=== PATIENT | male | born 1965 | race Caucasian/White ===

== ENCOUNTER → 2019-01-28 | Outpatient (CLI) | payer OTHER ==
[~2019-01-28] MED LIST: LIDOCAINE/PRILOCAINE 2.5-2.5% KIT ONE
[2019-01-28 14:58] LABS: BASOPHILS # (AUTO) 0.1 (0.0-0.1); BASOPHILS % 1.1 % (0.0-1.0); EOSINOPHILS # (AUTO) 0.2 (0.0-0.4); EOSINOPHILS % 2.9 % (0.0-6.0); HEMATOCRIT 44.9 % (38.2-49.6); LYMPHOCYTES # (AUTO) 1.2 (1.0-3.2); LYMPHOCYTES % 18.1 % (18.0-39.1); MEAN CORPUSCULAR HEMOGLOBIN 27.4 pg (28-32); MEAN CORPUSCULAR HGB CONC 33.4 g/dL (31-35); MEAN CORPUSCULAR VOLUME 82.1 fL (81-99); MONOCYTES # (AUTO) 0.6 (0.2-0.8); MONOCYTES % 8.5 % (4.4-11.3); NEUTROPHILS # (AUTO) 4.5 (2.1-6.9); NEUTROPHILS % 68.8 % (38.7-80.0); PLATELET COUNT 229 x10e3/uL (140-360); RED BLOOD COUNT 5.47 x10e6/uL (4.3-5.7); RED CELL DISTRIBUTION WIDTH 13.2 % (11.7-14.4)
[2019-01-28 15:16] LABS: ALBUMIN 3.7 g/dL (3.5-5.0); ALBUMIN/GLOBULIN RATIO 0.9 (0.8-2.0); ANION GAP 17.1 mmol/L (8-16); CALCIUM 10.3 mg/dL (8.4-10.2); CREATININE, SERUM 1.77 mg/dL (0.72-1.25); POTASSIUM 4.1 mmol/L (3.5-5.1)
[2019-01-28 15:37] LABS: ERYTHROCYTE SEDIMENTATION RATE 21 mm/hr (0-13)
== END ==
LOC: WCC 01-19 14:36
PROVIDERS: ATTEND Family Medicine Adult Medicine
DX: E11.621 Type 2 diabetes mellitus with foot ulcer (principal); E11.29 Type 2 diabetes mellitus with other diabetic kidney complication; L97.429 Non-pressure chronic ulcer of left heel and midfoot with unspecified severity; M77.32 Calcaneal spur, left foot; N18.9 Chronic kidney disease, unspecified; I10 Essential (primary) hypertension; E29.1 Testicular hypofunction; E55.9 Vitamin D deficiency, unspecified
CPT/HCPCS: 36415; 80053; 82948; 83036; 84134; 85025; 85651; 86140

== ENCOUNTER → 2019-02-02 | Outpatient (CLI) | payer OTHER ==
--- NOTE | 2019-02-02 15:36 | Diagnostic Imaging Report ---
LEFT FOOT - 3 Images HISTORY: LEFT HEEL/MIDFOOT ULCER COMPARISON: None available. FINDINGS: Bones: No acute displaced fracture. No aggressive osseous lesion. No specific evidence of acute osseous erosion. Joints: Mild hallux valgus deformity. Multifocal degenerative changes, most only mild of the first metatarsophalangeal joint. Mild medial subluxation of the proximal fifth phalanx at the fifth metatarsophalangeal joint. Soft tissues: Small nonspecific soft tissue calcifications at the plantar soft tissues of the hindfoot. Nonspecific soft tissue swelling. IMPRESSION: No radiographic evidence of osteomyelitis. Signed by: Dr. Lai Monet D.O., M.M.M. on 02/02/2019 3:32 PM
== END ==
LOC: RAD 14:59
PROVIDERS: ATTEND Family Medicine Adult Medicine
DX: E11.621 Type 2 diabetes mellitus with foot ulcer (principal); L97.429 Non-pressure chronic ulcer of left heel and midfoot with unspecified severity

== ENCOUNTER → 2019-02-04 | Outpatient (CLI) | payer OTHER | LOC: WCC 11:56 | PROVIDERS: ATTEND Family Medicine Adult Medicine | DX: E11.621 Type 2 diabetes mellitus with foot ulcer (principal); E11.29 Type 2 diabetes mellitus with other diabetic kidney complication; L97.429 Non-pressure chronic ulcer of left heel and midfoot with unspecified severity; N18.9 Chronic kidney disease, unspecified; I10 Essential (primary) hypertension; E29.1 Testicular hypofunction; E55.9 Vitamin D deficiency, unspecified; M77.32 Calcaneal spur, left foot ==

== ENCOUNTER → 2019-02-09 | Outpatient (CLI) | payer OTHER ==
[~2019-02-09] MED LIST changes: +FLUOCINONIDE 0.05% 1 EA/15 GM TUBE ONE; +MINERAL OIL/PETROLAT/GLYCERI 2OZ CRM ONE; +MINERAL OIL/PETROLAT/GLYCERI 6OZ BTL ONE
== END ==
LOC: WCC 13:29
PROVIDERS: ATTEND Family Medicine Adult Medicine
DX: E11.621 Type 2 diabetes mellitus with foot ulcer (principal); E11.29 Type 2 diabetes mellitus with other diabetic kidney complication; L97.429 Non-pressure chronic ulcer of left heel and midfoot with unspecified severity; L24.4 Irritant contact dermatitis due to drugs in contact with skin; R21 Rash and other nonspecific skin eruption; M77.32 Calcaneal spur, left foot; N18.9 Chronic kidney disease, unspecified; I10 Essential (primary) hypertension; E29.1 Testicular hypofunction; E55.9 Vitamin D deficiency, unspecified
CPT/HCPCS: 88305; 88311

== ENCOUNTER → 2019-02-16 | Outpatient (CLI) | payer OTHER | LOC: WCC 15:29 | PROVIDERS: ATTEND Family Medicine Adult Medicine | DX: E11.621 Type 2 diabetes mellitus with foot ulcer (principal); E11.29 Type 2 diabetes mellitus with other diabetic kidney complication; L97.429 Non-pressure chronic ulcer of left heel and midfoot with unspecified severity; L24.4 Irritant contact dermatitis due to drugs in contact with skin; R21 Rash and other nonspecific skin eruption; N18.9 Chronic kidney disease, unspecified; I10 Essential (primary) hypertension; E29.1 Testicular hypofunction; E55.9 Vitamin D deficiency, unspecified; M77.32 Calcaneal spur, left foot ==

== ENCOUNTER → 2019-02-18 | Outpatient (CLI) | payer OTHER | LOC: WCC 15:10 | PROVIDERS: ATTEND Family Medicine Adult Medicine | DX: E11.621 Type 2 diabetes mellitus with foot ulcer (principal); E11.29 Type 2 diabetes mellitus with other diabetic kidney complication; L97.429 Non-pressure chronic ulcer of left heel and midfoot with unspecified severity; L24.4 Irritant contact dermatitis due to drugs in contact with skin; R21 Rash and other nonspecific skin eruption; M77.32 Calcaneal spur, left foot; N18.9 Chronic kidney disease, unspecified; I10 Essential (primary) hypertension; E29.1 Testicular hypofunction; E55.9 Vitamin D deficiency, unspecified ==

== ENCOUNTER → 2019-02-23 | Outpatient (CLI) | payer OTHER | LOC: WCC 10:28 | PROVIDERS: ATTEND Family Medicine Adult Medicine | DX: E11.621 Type 2 diabetes mellitus with foot ulcer (principal); E11.29 Type 2 diabetes mellitus with other diabetic kidney complication; M86.172 Other acute osteomyelitis, left ankle and foot; M86.672 Other chronic osteomyelitis, left ankle and foot; L97.429 Non-pressure chronic ulcer of left heel and midfoot with unspecified severity; L24.4 Irritant contact dermatitis due to drugs in contact with skin; R21 Rash and other nonspecific skin eruption; M77.32 Calcaneal spur, left foot; N18.9 Chronic kidney disease, unspecified; I10 Essential (primary) hypertension; E55.9 Vitamin D deficiency, unspecified; E29.1 Testicular hypofunction ==

== ENCOUNTER → 2019-02-25 | Outpatient (CLI) | payer OTHER | LOC: WCC 10:24 | PROVIDERS: ATTEND Family Medicine Adult Medicine | DX: E11.621 Type 2 diabetes mellitus with foot ulcer (principal); E11.29 Type 2 diabetes mellitus with other diabetic kidney complication; M86.172 Other acute osteomyelitis, left ankle and foot; M86.672 Other chronic osteomyelitis, left ankle and foot; L97.429 Non-pressure chronic ulcer of left heel and midfoot with unspecified severity; N18.9 Chronic kidney disease, unspecified; I10 Essential (primary) hypertension; L24.4 Irritant contact dermatitis due to drugs in contact with skin; R21 Rash and other nonspecific skin eruption; M77.32 Calcaneal spur, left foot; E55.9 Vitamin D deficiency, unspecified; E29.1 Testicular hypofunction ==

== ENCOUNTER → 2019-03-02 | Outpatient (CLI) | payer OTHER | LOC: WCC 10:47 | PROVIDERS: ATTEND Family Medicine Adult Medicine | DX: E11.621 Type 2 diabetes mellitus with foot ulcer (principal); E11.29 Type 2 diabetes mellitus with other diabetic kidney complication; M86.172 Other acute osteomyelitis, left ankle and foot; M86.672 Other chronic osteomyelitis, left ankle and foot; L97.429 Non-pressure chronic ulcer of left heel and midfoot with unspecified severity; L24.4 Irritant contact dermatitis due to drugs in contact with skin; R21 Rash and other nonspecific skin eruption; N18.9 Chronic kidney disease, unspecified; I10 Essential (primary) hypertension; E29.1 Testicular hypofunction; E55.9 Vitamin D deficiency, unspecified; M77.32 Calcaneal spur, left foot | CPT/HCPCS: 87071; 87075; 87205 ==

== ENCOUNTER → 2019-03-04 | Outpatient (CLI) | payer OTHER | LOC: WCC 08:52 | PROVIDERS: ATTEND Family Medicine Adult Medicine | DX: E11.621 Type 2 diabetes mellitus with foot ulcer (principal); E11.29 Type 2 diabetes mellitus with other diabetic kidney complication; M86.172 Other acute osteomyelitis, left ankle and foot; M86.672 Other chronic osteomyelitis, left ankle and foot; L97.429 Non-pressure chronic ulcer of left heel and midfoot with unspecified severity; L24.4 Irritant contact dermatitis due to drugs in contact with skin; R21 Rash and other nonspecific skin eruption; M77.32 Calcaneal spur, left foot; N18.9 Chronic kidney disease, unspecified; I10 Essential (primary) hypertension; E55.9 Vitamin D deficiency, unspecified; E29.1 Testicular hypofunction ==

== ENCOUNTER → 2019-03-09 | Outpatient (CLI) | payer OTHER | LOC: WCC 11:28 | PROVIDERS: ATTEND Family Medicine Adult Medicine | DX: E11.621 Type 2 diabetes mellitus with foot ulcer (principal); E11.29 Type 2 diabetes mellitus with other diabetic kidney complication; L97.429 Non-pressure chronic ulcer of left heel and midfoot with unspecified severity; L24.4 Irritant contact dermatitis due to drugs in contact with skin; R21 Rash and other nonspecific skin eruption; M77.32 Calcaneal spur, left foot; N18.9 Chronic kidney disease, unspecified; I10 Essential (primary) hypertension; E29.1 Testicular hypofunction; E55.9 Vitamin D deficiency, unspecified ==

== ENCOUNTER → 2019-03-11 | Outpatient (CLI) | payer OTHER ==
[~2019-03-11] MED LIST changes: +COLLAGENASE OINTMENT 30 GM TUBE ONE; -FLUOCINONIDE 0.05% 1 EA/15 GM TUBE ONE
== END ==
LOC: WCC 10:41
PROVIDERS: ATTEND Family Medicine
DX: E11.621 Type 2 diabetes mellitus with foot ulcer (principal); E11.29 Type 2 diabetes mellitus with other diabetic kidney complication; M86.172 Other acute osteomyelitis, left ankle and foot; M86.672 Other chronic osteomyelitis, left ankle and foot; L97.429 Non-pressure chronic ulcer of left heel and midfoot with unspecified severity; L24.4 Irritant contact dermatitis due to drugs in contact with skin; R21 Rash and other nonspecific skin eruption; M77.32 Calcaneal spur, left foot; N18.9 Chronic kidney disease, unspecified; I10 Essential (primary) hypertension; E55.9 Vitamin D deficiency, unspecified; E29.1 Testicular hypofunction

== ENCOUNTER → 2019-03-16 | Outpatient (CLI) | payer OTHER | LOC: WCC 08:49 | PROVIDERS: ATTEND Family Medicine | DX: E11.621 Type 2 diabetes mellitus with foot ulcer (principal); E11.29 Type 2 diabetes mellitus with other diabetic kidney complication; M86.172 Other acute osteomyelitis, left ankle and foot; M86.672 Other chronic osteomyelitis, left ankle and foot; L97.429 Non-pressure chronic ulcer of left heel and midfoot with unspecified severity; L24.4 Irritant contact dermatitis due to drugs in contact with skin; R21 Rash and other nonspecific skin eruption; M77.32 Calcaneal spur, left foot; N18.9 Chronic kidney disease, unspecified; I10 Essential (primary) hypertension; E29.1 Testicular hypofunction; E55.9 Vitamin D deficiency, unspecified ==

== ENCOUNTER → 2019-03-18 | Outpatient (CLI) | payer OTHER | LOC: WCC 02:00 | PROVIDERS: ATTEND Family Medicine | DX: E11.621 Type 2 diabetes mellitus with foot ulcer (principal); E11.29 Type 2 diabetes mellitus with other diabetic kidney complication; M86.172 Other acute osteomyelitis, left ankle and foot; M86.672 Other chronic osteomyelitis, left ankle and foot; L97.429 Non-pressure chronic ulcer of left heel and midfoot with unspecified severity; L24.4 Irritant contact dermatitis due to drugs in contact with skin; R21 Rash and other nonspecific skin eruption; M77.32 Calcaneal spur, left foot; N18.9 Chronic kidney disease, unspecified; I10 Essential (primary) hypertension; E55.9 Vitamin D deficiency, unspecified; E29.1 Testicular hypofunction ==

== ENCOUNTER → 2019-03-23 | Outpatient (CLI) | payer OTHER | LOC: WCC 09:20 | PROVIDERS: ATTEND Family Medicine | DX: E11.621 Type 2 diabetes mellitus with foot ulcer (principal); E11.29 Type 2 diabetes mellitus with other diabetic kidney complication; M86.172 Other acute osteomyelitis, left ankle and foot; M86.672 Other chronic osteomyelitis, left ankle and foot; L97.429 Non-pressure chronic ulcer of left heel and midfoot with unspecified severity; L24.4 Irritant contact dermatitis due to drugs in contact with skin; R21 Rash and other nonspecific skin eruption; N18.9 Chronic kidney disease, unspecified; I10 Essential (primary) hypertension; M77.32 Calcaneal spur, left foot; E29.1 Testicular hypofunction; E55.9 Vitamin D deficiency, unspecified ==

== ENCOUNTER → 2019-03-25 | Outpatient (CLI) | payer OTHER | LOC: WCC 10:54 | PROVIDERS: ATTEND Family Medicine | DX: E11.621 Type 2 diabetes mellitus with foot ulcer (principal); E11.29 Type 2 diabetes mellitus with other diabetic kidney complication; L97.429 Non-pressure chronic ulcer of left heel and midfoot with unspecified severity; M86.172 Other acute osteomyelitis, left ankle and foot; M86.672 Other chronic osteomyelitis, left ankle and foot; R21 Rash and other nonspecific skin eruption; M77.32 Calcaneal spur, left foot; N18.9 Chronic kidney disease, unspecified; I10 Essential (primary) hypertension; E55.9 Vitamin D deficiency, unspecified; E29.1 Testicular hypofunction ==

== ENCOUNTER → 2019-03-30 | Outpatient (CLI) | payer OTHER ==
[2019-03-30 11:53] LABS: ALBUMIN 3.7 g/dL (3.5-5.0); ANION GAP 12.2 mmol/L (8-16); CREATININE, SERUM 1.66 mg/dL (0.72-1.25); POTASSIUM 4.2 mmol/L (3.5-5.1)
== END ==
LOC: WCC 14:03
PROVIDERS: ATTEND Family Medicine
DX: E11.621 Type 2 diabetes mellitus with foot ulcer (principal); E11.29 Type 2 diabetes mellitus with other diabetic kidney complication; M86.172 Other acute osteomyelitis, left ankle and foot; M86.672 Other chronic osteomyelitis, left ankle and foot; L97.429 Non-pressure chronic ulcer of left heel and midfoot with unspecified severity; M77.32 Calcaneal spur, left foot; R21 Rash and other nonspecific skin eruption; N18.9 Chronic kidney disease, unspecified; I10 Essential (primary) hypertension; E29.1 Testicular hypofunction; E55.9 Vitamin D deficiency, unspecified
CPT/HCPCS: 36415; 80053; 83036

== ENCOUNTER → 2019-04-01 | Outpatient (CLI) | payer OTHER | LOC: WCC 10:39 | PROVIDERS: ATTEND Family Medicine | DX: E11.621 Type 2 diabetes mellitus with foot ulcer (principal); E11.29 Type 2 diabetes mellitus with other diabetic kidney complication; M86.172 Other acute osteomyelitis, left ankle and foot; M86.672 Other chronic osteomyelitis, left ankle and foot; L97.429 Non-pressure chronic ulcer of left heel and midfoot with unspecified severity; R21 Rash and other nonspecific skin eruption; M77.32 Calcaneal spur, left foot; N18.9 Chronic kidney disease, unspecified; I10 Essential (primary) hypertension; E55.9 Vitamin D deficiency, unspecified; E29.1 Testicular hypofunction ==

== ENCOUNTER → 2019-04-06 | Outpatient (CLI) | payer OTHER | LOC: WCC 12:34 | PROVIDERS: ATTEND Family Medicine | DX: E11.621 Type 2 diabetes mellitus with foot ulcer (principal); E11.29 Type 2 diabetes mellitus with other diabetic kidney complication; M86.172 Other acute osteomyelitis, left ankle and foot; M86.672 Other chronic osteomyelitis, left ankle and foot; L97.429 Non-pressure chronic ulcer of left heel and midfoot with unspecified severity; N18.9 Chronic kidney disease, unspecified; I10 Essential (primary) hypertension; R21 Rash and other nonspecific skin eruption; M77.32 Calcaneal spur, left foot; E55.9 Vitamin D deficiency, unspecified; E29.1 Testicular hypofunction ==

== ENCOUNTER → 2019-04-08 | Outpatient (CLI) | payer OTHER | LOC: WCC 08:51 | PROVIDERS: ATTEND Family Medicine | DX: E11.621 Type 2 diabetes mellitus with foot ulcer (principal); E11.29 Type 2 diabetes mellitus with other diabetic kidney complication; M86.172 Other acute osteomyelitis, left ankle and foot; M86.672 Other chronic osteomyelitis, left ankle and foot; L97.429 Non-pressure chronic ulcer of left heel and midfoot with unspecified severity; R21 Rash and other nonspecific skin eruption; M77.32 Calcaneal spur, left foot; N18.9 Chronic kidney disease, unspecified; I10 Essential (primary) hypertension; E55.9 Vitamin D deficiency, unspecified; E29.1 Testicular hypofunction ==

== ENCOUNTER → 2019-04-13 | Outpatient (CLI) | payer OTHER ==
[~2019-04-13] MED LIST changes: +AMMONIUM LACTATE 12% LOTION 225GM BTL ONE; -COLLAGENASE OINTMENT 30 GM TUBE ONE; +LIDOCAINE VISC 2% SOLN 15 ML UDC ONE; -LIDOCAINE/PRILOCAINE 2.5-2.5% KIT ONE; -MINERAL OIL/PETROLAT/GLYCERI 2OZ CRM ONE; -MINERAL OIL/PETROLAT/GLYCERI 6OZ BTL ONE
== END ==
LOC: WCC 12:28
PROVIDERS: ATTEND Family Medicine Adult Medicine
DX: E11.621 Type 2 diabetes mellitus with foot ulcer (principal); E11.29 Type 2 diabetes mellitus with other diabetic kidney complication; M86.172 Other acute osteomyelitis, left ankle and foot; M86.672 Other chronic osteomyelitis, left ankle and foot; L97.429 Non-pressure chronic ulcer of left heel and midfoot with unspecified severity; R21 Rash and other nonspecific skin eruption; M77.32 Calcaneal spur, left foot; E29.1 Testicular hypofunction; E55.9 Vitamin D deficiency, unspecified

== ENCOUNTER → 2019-04-15 | Outpatient (CLI) | payer OTHER | LOC: WCC 04-14 16:21 | PROVIDERS: ATTEND Family Medicine Adult Medicine | DX: E11.621 Type 2 diabetes mellitus with foot ulcer (principal); E11.29 Type 2 diabetes mellitus with other diabetic kidney complication; M86.672 Other chronic osteomyelitis, left ankle and foot; L97.429 Non-pressure chronic ulcer of left heel and midfoot with unspecified severity; R21 Rash and other nonspecific skin eruption; N18.9 Chronic kidney disease, unspecified; I10 Essential (primary) hypertension; E29.1 Testicular hypofunction; E55.9 Vitamin D deficiency, unspecified; M77.32 Calcaneal spur, left foot | CPT/HCPCS: 15275; Q4186 ==

== ENCOUNTER → 2019-04-22 | Outpatient (CLI) | payer OTHER | LOC: WCC 15:23 | PROVIDERS: ATTEND Family Medicine Adult Medicine | DX: E11.621 Type 2 diabetes mellitus with foot ulcer (principal); E11.29 Type 2 diabetes mellitus with other diabetic kidney complication; M86.672 Other chronic osteomyelitis, left ankle and foot; L97.429 Non-pressure chronic ulcer of left heel and midfoot with unspecified severity; N18.9 Chronic kidney disease, unspecified; I10 Essential (primary) hypertension; M77.32 Calcaneal spur, left foot; R21 Rash and other nonspecific skin eruption; E29.1 Testicular hypofunction; E55.9 Vitamin D deficiency, unspecified | CPT/HCPCS: 15275; Q4186 ==

== ENCOUNTER → 2019-04-29 | Outpatient (CLI) | payer OTHER | LOC: WCC 10:42 | PROVIDERS: ATTEND Family Medicine Adult Medicine | DX: E11.621 Type 2 diabetes mellitus with foot ulcer (principal); E11.29 Type 2 diabetes mellitus with other diabetic kidney complication; M86.672 Other chronic osteomyelitis, left ankle and foot; L97.429 Non-pressure chronic ulcer of left heel and midfoot with unspecified severity; R21 Rash and other nonspecific skin eruption; M77.32 Calcaneal spur, left foot; N18.9 Chronic kidney disease, unspecified; I10 Essential (primary) hypertension; E29.1 Testicular hypofunction; E55.9 Vitamin D deficiency, unspecified ==

== ENCOUNTER → 2019-05-07 | Outpatient (CLI) | payer OTHER | LOC: WCC 11:22 | PROVIDERS: ATTEND Family Medicine Adult Medicine | DX: E11.621 Type 2 diabetes mellitus with foot ulcer (principal); E11.29 Type 2 diabetes mellitus with other diabetic kidney complication; M86.672 Other chronic osteomyelitis, left ankle and foot; L97.429 Non-pressure chronic ulcer of left heel and midfoot with unspecified severity; R21 Rash and other nonspecific skin eruption; M77.32 Calcaneal spur, left foot; N18.9 Chronic kidney disease, unspecified; I10 Essential (primary) hypertension; E55.9 Vitamin D deficiency, unspecified; E29.1 Testicular hypofunction ==

== ENCOUNTER → 2019-05-14 | Outpatient (CLI) | payer OTHER | LOC: WCC 15:46 | PROVIDERS: ATTEND Family Medicine Adult Medicine | DX: E11.621 Type 2 diabetes mellitus with foot ulcer (principal); E11.29 Type 2 diabetes mellitus with other diabetic kidney complication; M86.672 Other chronic osteomyelitis, left ankle and foot; L97.429 Non-pressure chronic ulcer of left heel and midfoot with unspecified severity; R21 Rash and other nonspecific skin eruption; M77.32 Calcaneal spur, left foot; N18.9 Chronic kidney disease, unspecified; I10 Essential (primary) hypertension; E55.9 Vitamin D deficiency, unspecified; E29.1 Testicular hypofunction ==

== ENCOUNTER → 2019-05-18 | Outpatient (CLI) | payer OTHER | LOC: WCC 11:48 | PROVIDERS: ATTEND Family Medicine Adult Medicine | DX: E11.621 Type 2 diabetes mellitus with foot ulcer (principal); E11.29 Type 2 diabetes mellitus with other diabetic kidney complication; M86.672 Other chronic osteomyelitis, left ankle and foot; L97.429 Non-pressure chronic ulcer of left heel and midfoot with unspecified severity; R21 Rash and other nonspecific skin eruption; M77.32 Calcaneal spur, left foot; N18.9 Chronic kidney disease, unspecified; I10 Essential (primary) hypertension; E29.1 Testicular hypofunction; E55.9 Vitamin D deficiency, unspecified | CPT/HCPCS: 15275; Q4186 ==

== ENCOUNTER → 2019-05-21 | Outpatient (CLI) | payer OTHER | LOC: WCC 11:48 | PROVIDERS: ATTEND Family Medicine Adult Medicine | DX: E11.621 Type 2 diabetes mellitus with foot ulcer (principal); E11.29 Type 2 diabetes mellitus with other diabetic kidney complication; L97.429 Non-pressure chronic ulcer of left heel and midfoot with unspecified severity; R21 Rash and other nonspecific skin eruption; N18.9 Chronic kidney disease, unspecified; I10 Essential (primary) hypertension; E29.1 Testicular hypofunction; M77.32 Calcaneal spur, left foot; E55.9 Vitamin D deficiency, unspecified ==

== ENCOUNTER → 2019-05-25 | Outpatient (CLI) | payer OTHER | LOC: WCC 10:45 | PROVIDERS: ATTEND Podiatrist Foot & Ankle Surgery | DX: E11.621 Type 2 diabetes mellitus with foot ulcer (principal); E11.29 Type 2 diabetes mellitus with other diabetic kidney complication; L97.429 Non-pressure chronic ulcer of left heel and midfoot with unspecified severity; N18.9 Chronic kidney disease, unspecified; I10 Essential (primary) hypertension; R21 Rash and other nonspecific skin eruption; M77.32 Calcaneal spur, left foot; E29.1 Testicular hypofunction; E55.9 Vitamin D deficiency, unspecified | CPT/HCPCS: 15275; Q4186 ==

== ENCOUNTER → 2019-06-04 | Outpatient (CLI) | payer OTHER | LOC: WCC 12:56 | PROVIDERS: ATTEND Family Medicine Adult Medicine | DX: E11.621 Type 2 diabetes mellitus with foot ulcer (principal); E11.29 Type 2 diabetes mellitus with other diabetic kidney complication; L97.429 Non-pressure chronic ulcer of left heel and midfoot with unspecified severity; R21 Rash and other nonspecific skin eruption; M77.32 Calcaneal spur, left foot; N18.9 Chronic kidney disease, unspecified; I10 Essential (primary) hypertension; E29.1 Testicular hypofunction; E55.9 Vitamin D deficiency, unspecified ==

== ENCOUNTER → 2019-06-11 | Outpatient (CLI) | payer OTHER | LOC: WCC 14:38 | PROVIDERS: ATTEND Family Medicine Adult Medicine | DX: E11.621 Type 2 diabetes mellitus with foot ulcer (principal); E11.29 Type 2 diabetes mellitus with other diabetic kidney complication; L97.429 Non-pressure chronic ulcer of left heel and midfoot with unspecified severity; R21 Rash and other nonspecific skin eruption; M77.32 Calcaneal spur, left foot; N18.9 Chronic kidney disease, unspecified; I10 Essential (primary) hypertension; E55.9 Vitamin D deficiency, unspecified; E29.1 Testicular hypofunction ==

== ENCOUNTER → 2019-06-15 | Outpatient (CLI) | payer OTHER | LOC: EDBD → WCC 15:17 | PROVIDERS: ATTEND Family Medicine Adult Medicine | DX: E11.621 Type 2 diabetes mellitus with foot ulcer (principal); E11.29 Type 2 diabetes mellitus with other diabetic kidney complication; L97.429 Non-pressure chronic ulcer of left heel and midfoot with unspecified severity; R21 Rash and other nonspecific skin eruption; M77.32 Calcaneal spur, left foot; N18.9 Chronic kidney disease, unspecified; I10 Essential (primary) hypertension; E29.1 Testicular hypofunction; E55.9 Vitamin D deficiency, unspecified ==

== ENCOUNTER → 2019-06-17 | Outpatient (CLI) | payer OTHER | LOC: WCC 09:39 | PROVIDERS: ATTEND Family Medicine Adult Medicine | DX: E11.621 Type 2 diabetes mellitus with foot ulcer (principal); E11.29 Type 2 diabetes mellitus with other diabetic kidney complication; L97.429 Non-pressure chronic ulcer of left heel and midfoot with unspecified severity; R21 Rash and other nonspecific skin eruption; M77.32 Calcaneal spur, left foot; N18.9 Chronic kidney disease, unspecified; I10 Essential (primary) hypertension; E55.9 Vitamin D deficiency, unspecified; E29.1 Testicular hypofunction ==

== ENCOUNTER → 2019-06-22 | Outpatient (CLI) | payer OTHER | LOC: WCC 16:17 | PROVIDERS: ATTEND Family Medicine Adult Medicine | DX: E11.621 Type 2 diabetes mellitus with foot ulcer (principal); E11.29 Type 2 diabetes mellitus with other diabetic kidney complication; L97.429 Non-pressure chronic ulcer of left heel and midfoot with unspecified severity; R21 Rash and other nonspecific skin eruption; M77.32 Calcaneal spur, left foot; N18.9 Chronic kidney disease, unspecified; I10 Essential (primary) hypertension; E29.1 Testicular hypofunction; E55.9 Vitamin D deficiency, unspecified ==

== ENCOUNTER → 2019-06-24 | Outpatient (CLI) | payer OTHER | LOC: EDBD → WCC 12:49 | PROVIDERS: ATTEND Family Medicine Adult Medicine | DX: E11.621 Type 2 diabetes mellitus with foot ulcer (principal); E11.29 Type 2 diabetes mellitus with other diabetic kidney complication; L97.429 Non-pressure chronic ulcer of left heel and midfoot with unspecified severity; R21 Rash and other nonspecific skin eruption; M77.32 Calcaneal spur, left foot; N18.9 Chronic kidney disease, unspecified; I10 Essential (primary) hypertension; E55.9 Vitamin D deficiency, unspecified; E29.1 Testicular hypofunction | CPT/HCPCS: 87071; 87075; 87205 ==

== ENCOUNTER → 2019-06-28 | Outpatient (CLI) | payer OTHER | LOC: EDBD → WCC 15:31 | PROVIDERS: ATTEND Family Medicine Adult Medicine | DX: E11.621 Type 2 diabetes mellitus with foot ulcer (principal); E11.29 Type 2 diabetes mellitus with other diabetic kidney complication; L97.429 Non-pressure chronic ulcer of left heel and midfoot with unspecified severity; M77.32 Calcaneal spur, left foot; R21 Rash and other nonspecific skin eruption; N18.9 Chronic kidney disease, unspecified; I10 Essential (primary) hypertension; E29.1 Testicular hypofunction; E55.9 Vitamin D deficiency, unspecified ==

== ENCOUNTER → 2019-06-29 | Outpatient (CLI) | payer OTHER ==
--- NOTE | 2019-06-29 14:13 | Diagnostic Imaging Report ---
Chest, PA and lateral. History: Preprocedural exam. Comparison: None available. Discussion: The cardiomediastinal silhouette and pulmonary vasculature are within normal limits. The lungs are clear without evidence of consolidation or effusion. There are no acute osseous abnormalities. IMPRESSION: No radiographic evidence of acute cardiopulmonary abnormality. Signed by: Luis Wagner MD on 06/29/2019 2:10 PM
--- NOTE | 2019-06-29 14:19 | Diagnostic Imaging Report ---
Left foot, 3 views Clinical indications: Diabetes, left foot ulcer Comparison: 02/02/2019 Findings: 3 views of the left foot were obtained. Since prior examination there is been development of soft tissue ulcer at the lateral aspect of the fifth metatarsal head. There has been osseous resorption of the distal fifth metatarsal head and at osseous erosion is noted at the base of the fifth proximal phalanx. Multifocal degenerative changes are identified which are most pronounced at the first metatarsophalangeal joint. Mild hallux valgus deformity is present. Impression: Resorption of the fifth metatarsal head and osseous erosion of the base of the fifth proximal phalanx concerning for chronic osteomyelitis. An overlying soft tissue ulceration is present at the lateral aspect of the fifth metatarsal head. Signed by: Luis Wagner MD on 06/29/2019 2:16 PM
== END ==
LOC: WCC 13:23
PROVIDERS: ATTEND Family Medicine Adult Medicine
DX: E11.29 Type 2 diabetes mellitus with other diabetic kidney complication (principal); E11.621 Type 2 diabetes mellitus with foot ulcer; L97.429 Non-pressure chronic ulcer of left heel and midfoot with unspecified severity; R21 Rash and other nonspecific skin eruption; M77.32 Calcaneal spur, left foot; N18.9 Chronic kidney disease, unspecified; I10 Essential (primary) hypertension; E29.1 Testicular hypofunction; E55.9 Vitamin D deficiency, unspecified; Z01.810 Encounter for preprocedural cardiovascular examination; Z01.811 Encounter for preprocedural respiratory examination
CPT/HCPCS: 71046; 93005

== ENCOUNTER → 2019-06-30 | Outpatient (CLI) | payer OTHER | LOC: RAD 13:37 | PROVIDERS: ATTEND Family Medicine Adult Medicine | DX: Z01.810 Encounter for preprocedural cardiovascular examination (principal); Z01.811 Encounter for preprocedural respiratory examination; E11.621 Type 2 diabetes mellitus with foot ulcer | CPT/HCPCS: 93306 ==

== ENCOUNTER → 2019-07-01 | Outpatient (CLI) | payer OTHER | LOC: WCC 13:53 | PROVIDERS: ATTEND Family Medicine Adult Medicine | DX: E11.621 Type 2 diabetes mellitus with foot ulcer (principal); E11.29 Type 2 diabetes mellitus with other diabetic kidney complication; L97.429 Non-pressure chronic ulcer of left heel and midfoot with unspecified severity; R21 Rash and other nonspecific skin eruption; M77.32 Calcaneal spur, left foot; N18.9 Chronic kidney disease, unspecified; I10 Essential (primary) hypertension; E55.9 Vitamin D deficiency, unspecified; E29.1 Testicular hypofunction; Z01.810 Encounter for preprocedural cardiovascular examination; Z01.811 Encounter for preprocedural respiratory examination ==

== ENCOUNTER → 2019-07-06 | Outpatient (CLI) | payer OTHER | LOC: WCC 09:54 | PROVIDERS: ATTEND Family Medicine Adult Medicine | DX: E11.621 Type 2 diabetes mellitus with foot ulcer (principal); E11.29 Type 2 diabetes mellitus with other diabetic kidney complication; L97.429 Non-pressure chronic ulcer of left heel and midfoot with unspecified severity; M77.32 Calcaneal spur, left foot; R21 Rash and other nonspecific skin eruption; N18.9 Chronic kidney disease, unspecified; I10 Essential (primary) hypertension; E29.1 Testicular hypofunction; E55.9 Vitamin D deficiency, unspecified; Z01.810 Encounter for preprocedural cardiovascular examination; Z01.811 Encounter for preprocedural respiratory examination ==

== ENCOUNTER → 2019-07-13 | Outpatient (CLI) | payer OTHER ==
[~2019-07-13] MED LIST changes: -LIDOCAINE VISC 2% SOLN 15 ML UDC ONE; +LIDOCAINE/PRILOCAINE 2.5-2.5% KIT ONE; +MINERAL OIL/PETROLAT/GLYCERI 6OZ BTL ONE
== END ==
LOC: WCC 11:07
PROVIDERS: ATTEND Family Medicine Adult Medicine
DX: E11.621 Type 2 diabetes mellitus with foot ulcer (principal); E11.29 Type 2 diabetes mellitus with other diabetic kidney complication; L97.429 Non-pressure chronic ulcer of left heel and midfoot with unspecified severity; N18.9 Chronic kidney disease, unspecified; R21 Rash and other nonspecific skin eruption; I10 Essential (primary) hypertension; M77.32 Calcaneal spur, left foot; E29.1 Testicular hypofunction; E55.9 Vitamin D deficiency, unspecified; Z01.810 Encounter for preprocedural cardiovascular examination; Z01.811 Encounter for preprocedural respiratory examination

== ENCOUNTER → 2019-07-15 | Outpatient (CLI) | payer OTHER | LOC: WCC 13:55 | PROVIDERS: ATTEND Family Medicine Adult Medicine | DX: E11.621 Type 2 diabetes mellitus with foot ulcer (principal); E11.29 Type 2 diabetes mellitus with other diabetic kidney complication; M86.672 Other chronic osteomyelitis, left ankle and foot; L97.424 Non-pressure chronic ulcer of left heel and midfoot with necrosis of bone; R21 Rash and other nonspecific skin eruption; M77.32 Calcaneal spur, left foot; N18.9 Chronic kidney disease, unspecified; I10 Essential (primary) hypertension; E55.9 Vitamin D deficiency, unspecified; E29.1 Testicular hypofunction ==

== ENCOUNTER → 2019-07-19 | Outpatient (CLI) | payer OTHER | LOC: WCC 14:58 | PROVIDERS: ATTEND Family Medicine Adult Medicine | DX: E11.621 Type 2 diabetes mellitus with foot ulcer (principal); E11.29 Type 2 diabetes mellitus with other diabetic kidney complication; M86.672 Other chronic osteomyelitis, left ankle and foot; L97.424 Non-pressure chronic ulcer of left heel and midfoot with necrosis of bone; R21 Rash and other nonspecific skin eruption; M77.32 Calcaneal spur, left foot; N18.9 Chronic kidney disease, unspecified; I10 Essential (primary) hypertension; E55.9 Vitamin D deficiency, unspecified; E29.1 Testicular hypofunction; Z01.810 Encounter for preprocedural cardiovascular examination; Z01.811 Encounter for preprocedural respiratory examination | CPT/HCPCS: 99211; G0277 ==

== ENCOUNTER → 2019-07-20 | Outpatient (CLI) | payer OTHER | LOC: WCC 14:41 | PROVIDERS: ATTEND Family Medicine Adult Medicine | DX: E11.621 Type 2 diabetes mellitus with foot ulcer (principal); E11.29 Type 2 diabetes mellitus with other diabetic kidney complication; M86.672 Other chronic osteomyelitis, left ankle and foot; L97.424 Non-pressure chronic ulcer of left heel and midfoot with necrosis of bone; R21 Rash and other nonspecific skin eruption; M77.32 Calcaneal spur, left foot; N18.9 Chronic kidney disease, unspecified; I10 Essential (primary) hypertension; E29.1 Testicular hypofunction; E55.9 Vitamin D deficiency, unspecified; Z01.810 Encounter for preprocedural cardiovascular examination; Z01.811 Encounter for preprocedural respiratory examination | CPT/HCPCS: 11042; G0277 ==

== ENCOUNTER → 2019-07-21 | Outpatient (CLI) | payer OTHER | LOC: WCC 14:03 | PROVIDERS: ATTEND Family Medicine Adult Medicine | DX: E11.621 Type 2 diabetes mellitus with foot ulcer (principal); E11.29 Type 2 diabetes mellitus with other diabetic kidney complication; M86.672 Other chronic osteomyelitis, left ankle and foot; L97.424 Non-pressure chronic ulcer of left heel and midfoot with necrosis of bone; R21 Rash and other nonspecific skin eruption; M77.32 Calcaneal spur, left foot; N18.9 Chronic kidney disease, unspecified; I10 Essential (primary) hypertension; E29.1 Testicular hypofunction; E55.9 Vitamin D deficiency, unspecified; Z01.810 Encounter for preprocedural cardiovascular examination; Z01.811 Encounter for preprocedural respiratory examination ==

== ENCOUNTER → 2019-07-22 | Outpatient (CLI) | payer OTHER | LOC: WCC 14:52 | PROVIDERS: ATTEND Family Medicine Adult Medicine | DX: E11.621 Type 2 diabetes mellitus with foot ulcer (principal); E11.29 Type 2 diabetes mellitus with other diabetic kidney complication; M86.672 Other chronic osteomyelitis, left ankle and foot; L97.424 Non-pressure chronic ulcer of left heel and midfoot with necrosis of bone; R21 Rash and other nonspecific skin eruption; M77.32 Calcaneal spur, left foot; N18.9 Chronic kidney disease, unspecified; I10 Essential (primary) hypertension; E55.9 Vitamin D deficiency, unspecified; E29.1 Testicular hypofunction; Z01.810 Encounter for preprocedural cardiovascular examination; Z01.811 Encounter for preprocedural respiratory examination ==

== ENCOUNTER → 2019-07-23 | Outpatient (CLI) | payer OTHER | LOC: WCC 13:47 | PROVIDERS: ATTEND Family Medicine Adult Medicine | DX: E11.621 Type 2 diabetes mellitus with foot ulcer (principal); E11.29 Type 2 diabetes mellitus with other diabetic kidney complication; L97.424 Non-pressure chronic ulcer of left heel and midfoot with necrosis of bone; M86.672 Other chronic osteomyelitis, left ankle and foot; R21 Rash and other nonspecific skin eruption; M77.32 Calcaneal spur, left foot; N18.9 Chronic kidney disease, unspecified; I10 Essential (primary) hypertension; E55.9 Vitamin D deficiency, unspecified; E29.1 Testicular hypofunction; Z01.810 Encounter for preprocedural cardiovascular examination; Z01.811 Encounter for preprocedural respiratory examination ==

== ENCOUNTER → 2019-07-26 | Outpatient (CLI) | payer OTHER | LOC: WCC 15:54 | PROVIDERS: ATTEND Family Medicine Adult Medicine | DX: E11.621 Type 2 diabetes mellitus with foot ulcer (principal); E11.29 Type 2 diabetes mellitus with other diabetic kidney complication; M86.672 Other chronic osteomyelitis, left ankle and foot; L97.424 Non-pressure chronic ulcer of left heel and midfoot with necrosis of bone; R23.8 Other skin changes; M77.32 Calcaneal spur, left foot; N18.9 Chronic kidney disease, unspecified; I10 Essential (primary) hypertension; E55.9 Vitamin D deficiency, unspecified; E29.1 Testicular hypofunction; Z01.810 Encounter for preprocedural cardiovascular examination; Z01.811 Encounter for preprocedural respiratory examination ==

== ENCOUNTER → 2019-07-28 | Outpatient (CLI) | payer OTHER | LOC: WCC 15:42 | PROVIDERS: ATTEND Family Medicine Adult Medicine | DX: E11.621 Type 2 diabetes mellitus with foot ulcer (principal); E11.29 Type 2 diabetes mellitus with other diabetic kidney complication; M86.672 Other chronic osteomyelitis, left ankle and foot; L97.424 Non-pressure chronic ulcer of left heel and midfoot with necrosis of bone; R23.8 Other skin changes; M77.32 Calcaneal spur, left foot; N18.9 Chronic kidney disease, unspecified; I10 Essential (primary) hypertension; E29.1 Testicular hypofunction; E55.9 Vitamin D deficiency, unspecified; Z01.810 Encounter for preprocedural cardiovascular examination; Z01.811 Encounter for preprocedural respiratory examination ==

== ENCOUNTER → 2019-07-28 | Outpatient (CLI) | payer OTHER ==
--- NOTE | 2019-07-28 12:37 | Diagnostic Imaging Report ---
Left ankle, 3 views. History: Ulcer lateral aspect of the left fifth digit. Findings: The soft tissues are normal. Bone mineralization is normal. There is no evidence of fracture or dislocation. There are no lytic or sclerotic lesions. The joint spaces are within normal limits. Posterior and plantar calcaneal spurs are present. IMPRESSION: Calcaneal spurs. Otherwise unremarkable exam. Signed by: Mick Shelley on 07/28/2019 12:34 PM
--- NOTE | 2019-07-28 12:43 | Diagnostic Imaging Report ---
Left foot, 3 views. History: Ulcer on lateral aspect of the left fifth digit for one year. Comparison: 06/29/2019. Findings: Bone mineralization is normal. There is no evidence of acute fracture or dislocation. There is tapered deformity of the distal left fifth metatarsal with a small overlying soft tissue defect. Erosion at the base of the fifth proximal phalanx is again noted. There is mild hallux valgus deformity with mild first MTP DJD. Calcaneal spurs are noted. IMPRESSION: Deformity of the left fifth metatarsal and base of the fifth proximal phalanx consistent with chronic osteomyelitis, unchanged in appearance. Overlying soft tissue ulcer is smaller. Signed by: Mick Shelley on 07/28/2019 12:40 PM
== END ==
LOC: RAD 11:18
PROVIDERS: ATTEND Internal Medicine Gastroenterology
DX: E11.621 Type 2 diabetes mellitus with foot ulcer (principal); L97.424 Non-pressure chronic ulcer of left heel and midfoot with necrosis of bone

== ENCOUNTER → 2019-07-30 | Outpatient (CLI) | payer OTHER ==
[~2019-07-30] MED LIST changes: -AMMONIUM LACTATE 12% LOTION 225GM BTL ONE; -LIDOCAINE/PRILOCAINE 2.5-2.5% KIT ONE; -MINERAL OIL/PETROLAT/GLYCERI 6OZ BTL ONE; +MUPIROCIN 2% OINT 22 GM TUBE ONE
== END ==
LOC: WCC 10:56
PROVIDERS: ATTEND Family Medicine Adult Medicine
DX: E11.621 Type 2 diabetes mellitus with foot ulcer (principal); E11.29 Type 2 diabetes mellitus with other diabetic kidney complication; M86.672 Other chronic osteomyelitis, left ankle and foot; L97.424 Non-pressure chronic ulcer of left heel and midfoot with necrosis of bone; R23.8 Other skin changes; M77.32 Calcaneal spur, left foot; N18.9 Chronic kidney disease, unspecified; I10 Essential (primary) hypertension; E55.9 Vitamin D deficiency, unspecified; E29.1 Testicular hypofunction; Z01.810 Encounter for preprocedural cardiovascular examination; Z01.811 Encounter for preprocedural respiratory examination
CPT/HCPCS: 36415; 82948

== ENCOUNTER → 2019-08-03 | Outpatient (CLI) | payer OTHER | LOC: WCC 11:13 | PROVIDERS: ATTEND Family Medicine Adult Medicine | DX: E11.621 Type 2 diabetes mellitus with foot ulcer (principal); E11.29 Type 2 diabetes mellitus with other diabetic kidney complication; M86.672 Other chronic osteomyelitis, left ankle and foot; L97.424 Non-pressure chronic ulcer of left heel and midfoot with necrosis of bone; R23.8 Other skin changes; M77.32 Calcaneal spur, left foot; N18.9 Chronic kidney disease, unspecified; I10 Essential (primary) hypertension; E55.9 Vitamin D deficiency, unspecified; E29.1 Testicular hypofunction; Z01.810 Encounter for preprocedural cardiovascular examination; Z01.811 Encounter for preprocedural respiratory examination ==

== ENCOUNTER → 2019-08-05 | Outpatient (CLI) | payer OTHER | LOC: WCC 13:25 | PROVIDERS: ATTEND Family Medicine Adult Medicine | DX: E11.621 Type 2 diabetes mellitus with foot ulcer (principal); E11.29 Type 2 diabetes mellitus with other diabetic kidney complication; M86.672 Other chronic osteomyelitis, left ankle and foot; L97.424 Non-pressure chronic ulcer of left heel and midfoot with necrosis of bone; R23.8 Other skin changes; M77.32 Calcaneal spur, left foot; N18.9 Chronic kidney disease, unspecified; I10 Essential (primary) hypertension; E55.9 Vitamin D deficiency, unspecified; E29.1 Testicular hypofunction; Z01.810 Encounter for preprocedural cardiovascular examination; Z01.811 Encounter for preprocedural respiratory examination ==

== ENCOUNTER → 2019-08-17 | Outpatient (CLI) | payer OTHER | LOC: WCC 15:06 | PROVIDERS: ATTEND Family Medicine Adult Medicine | DX: E11.621 Type 2 diabetes mellitus with foot ulcer (principal); E11.29 Type 2 diabetes mellitus with other diabetic kidney complication; M86.672 Other chronic osteomyelitis, left ankle and foot; L97.424 Non-pressure chronic ulcer of left heel and midfoot with necrosis of bone; M77.32 Calcaneal spur, left foot; R23.8 Other skin changes; N18.9 Chronic kidney disease, unspecified; I10 Essential (primary) hypertension; E29.1 Testicular hypofunction; E55.9 Vitamin D deficiency, unspecified; Z01.810 Encounter for preprocedural cardiovascular examination; Z01.811 Encounter for preprocedural respiratory examination ==

== ENCOUNTER → 2019-09-08 | Outpatient (CLI) | payer OTHER | LOC: WCC 14:27 | PROVIDERS: ATTEND Family Medicine Adult Medicine | DX: E11.29 Type 2 diabetes mellitus with other diabetic kidney complication (principal); E11.621 Type 2 diabetes mellitus with foot ulcer; M86.672 Other chronic osteomyelitis, left ankle and foot; L97.424 Non-pressure chronic ulcer of left heel and midfoot with necrosis of bone; L84 Corns and callosities; M77.32 Calcaneal spur, left foot; R21 Rash and other nonspecific skin eruption; S90.415A Abrasion, left lesser toe(s), initial encounter; N18.9 Chronic kidney disease, unspecified; I10 Essential (primary) hypertension; E29.1 Testicular hypofunction; E55.9 Vitamin D deficiency, unspecified; Z01.810 Encounter for preprocedural cardiovascular examination; Z01.811 Encounter for preprocedural respiratory examination ==

== ENCOUNTER → 2019-09-10 | Outpatient (CLI) | payer OTHER | LOC: WCC 11:36 | PROVIDERS: ATTEND Family Medicine Adult Medicine | DX: E11.621 Type 2 diabetes mellitus with foot ulcer (principal); E11.29 Type 2 diabetes mellitus with other diabetic kidney complication; M86.672 Other chronic osteomyelitis, left ankle and foot; L97.424 Non-pressure chronic ulcer of left heel and midfoot with necrosis of bone; L84 Corns and callosities; M77.32 Calcaneal spur, left foot; R21 Rash and other nonspecific skin eruption; S90.415A Abrasion, left lesser toe(s), initial encounter; N18.9 Chronic kidney disease, unspecified; I10 Essential (primary) hypertension; E29.1 Testicular hypofunction; E55.9 Vitamin D deficiency, unspecified; Z01.810 Encounter for preprocedural cardiovascular examination; Z01.811 Encounter for preprocedural respiratory examination ==

== ENCOUNTER → 2019-09-13 | Outpatient (CLI) | payer OTHER ==
[~2019-09-13] MED LIST changes: +LIDOCAINE/PRILOCAINE 2.5-2.5% KIT ONE; -MUPIROCIN 2% OINT 22 GM TUBE ONE
--- NOTE | 2019-09-14 17:09 | Progress Note ---
DATE: 09/14/2019 Followup Wound Care Progress Note SUBJECTIVE: The patient came to [facility] today for hyperbaric oxygen therapy and followup wound care visit. The ulcer on lateral fifth metatarsal head of left foot appears healed with a mild overlying callus. There is no malodor or exudate present. Focal area of pink red discoloration is present proximal to the healed ulcer and most probably secondary to pressure and friction from the shoe. DIAGNOSES: 1. Callus, mild, lateral fifth metatarsal head, left foot. 2. Chronic diabetic ulcer, Razo's grade 3, healed, lateral fifth metatarsal head, left foot. PLAN: 1. Continue placing Pedi-pad around healed ulcer, lateral left foot daily. Remove it at night. Bolster Pedi-pad with Optifoam daily to prevent friction from shoes. 2. Discontinue wearing Darco shoe and start wearing regular shoes daily on left foot. 3. The patient has been given prescription for new diabetic shoes from [facility] and the patient will get an appointment shortly. Continue hyperbaric oxygen therapy to course completion. 4. We will prescribe Ativan per oral for patient if he experiences anxiety during hyperbaric oxygen therapy. 5. Return to [facility] outpatient wound care clinic in one week for followup visit with . Heather Castillo MD /BELEN /[id number]
== END ==
LOC: WCC 15:38
PROVIDERS: ATTEND Family Medicine Adult Medicine
DX: E11.29 Type 2 diabetes mellitus with other diabetic kidney complication (principal); E11.621 Type 2 diabetes mellitus with foot ulcer; M86.672 Other chronic osteomyelitis, left ankle and foot; L84 Corns and callosities; M77.32 Calcaneal spur, left foot; R21 Rash and other nonspecific skin eruption; N18.9 Chronic kidney disease, unspecified; I10 Essential (primary) hypertension; E29.1 Testicular hypofunction; E55.9 Vitamin D deficiency, unspecified; Z01.810 Encounter for preprocedural cardiovascular examination; Z01.811 Encounter for preprocedural respiratory examination
CPT/HCPCS: 36415; 82948; G0277 ×2

== ENCOUNTER → 2019-09-14 | Outpatient (CLI) | payer OTHER | LOC: WCC 09:00 | PROVIDERS: ATTEND Family Medicine Adult Medicine | DX: E11.29 Type 2 diabetes mellitus with other diabetic kidney complication (principal); E11.621 Type 2 diabetes mellitus with foot ulcer; M86.672 Other chronic osteomyelitis, left ankle and foot; L84 Corns and callosities; M77.32 Calcaneal spur, left foot; R21 Rash and other nonspecific skin eruption; N18.9 Chronic kidney disease, unspecified; I10 Essential (primary) hypertension; E29.1 Testicular hypofunction; E55.9 Vitamin D deficiency, unspecified; Z01.810 Encounter for preprocedural cardiovascular examination; Z01.811 Encounter for preprocedural respiratory examination ==

== ENCOUNTER → 2019-09-15 | Outpatient (CLI) | payer OTHER | LOC: WCC 11:18 | PROVIDERS: ATTEND Family Medicine Adult Medicine | DX: E11.29 Type 2 diabetes mellitus with other diabetic kidney complication (principal); E11.621 Type 2 diabetes mellitus with foot ulcer; M86.672 Other chronic osteomyelitis, left ankle and foot; M77.32 Calcaneal spur, left foot; L84 Corns and callosities; R21 Rash and other nonspecific skin eruption; N18.9 Chronic kidney disease, unspecified; I10 Essential (primary) hypertension; E29.1 Testicular hypofunction; E55.9 Vitamin D deficiency, unspecified; Z01.810 Encounter for preprocedural cardiovascular examination; Z01.811 Encounter for preprocedural respiratory examination ==

== ENCOUNTER → 2019-09-16 | Outpatient (CLI) | payer OTHER | LOC: WCC 15:31 | PROVIDERS: ATTEND Family Medicine Adult Medicine | DX: E11.29 Type 2 diabetes mellitus with other diabetic kidney complication (principal); E11.621 Type 2 diabetes mellitus with foot ulcer; M86.672 Other chronic osteomyelitis, left ankle and foot; L84 Corns and callosities; M77.32 Calcaneal spur, left foot; R21 Rash and other nonspecific skin eruption; N18.9 Chronic kidney disease, unspecified; I10 Essential (primary) hypertension; E29.1 Testicular hypofunction; E55.9 Vitamin D deficiency, unspecified; Z01.810 Encounter for preprocedural cardiovascular examination; Z01.811 Encounter for preprocedural respiratory examination ==

== ENCOUNTER → 2019-09-17 | Outpatient (CLI) | payer OTHER | LOC: WCC 12:08 | PROVIDERS: ATTEND Family Medicine Adult Medicine | DX: E11.29 Type 2 diabetes mellitus with other diabetic kidney complication (principal); E11.621 Type 2 diabetes mellitus with foot ulcer; M86.672 Other chronic osteomyelitis, left ankle and foot; L84 Corns and callosities; M77.32 Calcaneal spur, left foot; R21 Rash and other nonspecific skin eruption; N18.9 Chronic kidney disease, unspecified; I10 Essential (primary) hypertension; E29.1 Testicular hypofunction; E55.9 Vitamin D deficiency, unspecified; Z01.810 Encounter for preprocedural cardiovascular examination; Z01.811 Encounter for preprocedural respiratory examination ==

== ENCOUNTER → 2019-09-20 | Outpatient (CLI) | payer OTHER | LOC: WCC 15:28 | PROVIDERS: ATTEND Family Medicine Adult Medicine | DX: E11.29 Type 2 diabetes mellitus with other diabetic kidney complication (principal); E11.621 Type 2 diabetes mellitus with foot ulcer; M86.672 Other chronic osteomyelitis, left ankle and foot; L84 Corns and callosities; M77.32 Calcaneal spur, left foot; R21 Rash and other nonspecific skin eruption; N18.9 Chronic kidney disease, unspecified; I10 Essential (primary) hypertension; E29.1 Testicular hypofunction; E55.9 Vitamin D deficiency, unspecified; Z01.810 Encounter for preprocedural cardiovascular examination; Z01.811 Encounter for preprocedural respiratory examination ==

== ENCOUNTER → 2019-09-21 | Outpatient (CLI) | payer OTHER | LOC: WCC 09-20 16:41 | PROVIDERS: ATTEND Family Medicine Adult Medicine | DX: E11.29 Type 2 diabetes mellitus with other diabetic kidney complication (principal); E11.621 Type 2 diabetes mellitus with foot ulcer; M86.672 Other chronic osteomyelitis, left ankle and foot; L84 Corns and callosities; M77.32 Calcaneal spur, left foot; R21 Rash and other nonspecific skin eruption; N18.9 Chronic kidney disease, unspecified; I10 Essential (primary) hypertension; E29.1 Testicular hypofunction; E55.9 Vitamin D deficiency, unspecified; Z01.810 Encounter for preprocedural cardiovascular examination; Z01.811 Encounter for preprocedural respiratory examination | CPT/HCPCS: 99213; G0277 ==

== ENCOUNTER → 2019-09-22 | Outpatient (CLI) | payer OTHER | LOC: WCC 11:25 | PROVIDERS: ATTEND Family Medicine Adult Medicine | DX: E11.29 Type 2 diabetes mellitus with other diabetic kidney complication (principal); E11.621 Type 2 diabetes mellitus with foot ulcer; M86.672 Other chronic osteomyelitis, left ankle and foot; M77.32 Calcaneal spur, left foot; L84 Corns and callosities; R21 Rash and other nonspecific skin eruption; N18.9 Chronic kidney disease, unspecified; I10 Essential (primary) hypertension; E29.1 Testicular hypofunction; E55.9 Vitamin D deficiency, unspecified; Z01.810 Encounter for preprocedural cardiovascular examination; Z01.811 Encounter for preprocedural respiratory examination ==

== ENCOUNTER → 2019-09-23 | Outpatient (CLI) | payer OTHER | LOC: WCC 15:00 | PROVIDERS: ATTEND Family Medicine Adult Medicine | DX: E11.29 Type 2 diabetes mellitus with other diabetic kidney complication (principal); E11.621 Type 2 diabetes mellitus with foot ulcer; M86.672 Other chronic osteomyelitis, left ankle and foot; R21 Rash and other nonspecific skin eruption; L84 Corns and callosities; M77.32 Calcaneal spur, left foot; N18.9 Chronic kidney disease, unspecified; I10 Essential (primary) hypertension; E29.1 Testicular hypofunction; E55.9 Vitamin D deficiency, unspecified; Z01.810 Encounter for preprocedural cardiovascular examination; Z01.811 Encounter for preprocedural respiratory examination ==

== ENCOUNTER → 2019-09-24 | Outpatient (CLI) | payer OTHER | LOC: WCC 11:07 | PROVIDERS: ATTEND Family Medicine Adult Medicine | DX: E11.29 Type 2 diabetes mellitus with other diabetic kidney complication (principal); E11.621 Type 2 diabetes mellitus with foot ulcer; M86.672 Other chronic osteomyelitis, left ankle and foot; R21 Rash and other nonspecific skin eruption; M77.32 Calcaneal spur, left foot; L84 Corns and callosities; N18.9 Chronic kidney disease, unspecified; I10 Essential (primary) hypertension; E29.1 Testicular hypofunction; E55.9 Vitamin D deficiency, unspecified; Z01.810 Encounter for preprocedural cardiovascular examination; Z01.811 Encounter for preprocedural respiratory examination ==

== ENCOUNTER → 2019-09-27 | Outpatient (CLI) | payer OTHER | LOC: WCC 11:29 | PROVIDERS: ATTEND Family Medicine Adult Medicine | DX: E11.29 Type 2 diabetes mellitus with other diabetic kidney complication (principal); E11.621 Type 2 diabetes mellitus with foot ulcer; M86.672 Other chronic osteomyelitis, left ankle and foot; L84 Corns and callosities; S90.415A Abrasion, left lesser toe(s), initial encounter; M77.32 Calcaneal spur, left foot; R21 Rash and other nonspecific skin eruption; N18.9 Chronic kidney disease, unspecified; I10 Essential (primary) hypertension; E29.1 Testicular hypofunction; E55.9 Vitamin D deficiency, unspecified; Z01.810 Encounter for preprocedural cardiovascular examination; Z01.811 Encounter for preprocedural respiratory examination ==

== ENCOUNTER → 2019-09-28 | Outpatient (CLI) | payer OTHER | LOC: WCC 10:04 | PROVIDERS: ATTEND Family Medicine Adult Medicine | DX: E11.29 Type 2 diabetes mellitus with other diabetic kidney complication (principal); E11.621 Type 2 diabetes mellitus with foot ulcer; M86.672 Other chronic osteomyelitis, left ankle and foot; S90.415A Abrasion, left lesser toe(s), initial encounter; L84 Corns and callosities; M77.32 Calcaneal spur, left foot; R21 Rash and other nonspecific skin eruption; N18.9 Chronic kidney disease, unspecified; I10 Essential (primary) hypertension; E29.1 Testicular hypofunction; E55.9 Vitamin D deficiency, unspecified; Z01.810 Encounter for preprocedural cardiovascular examination; Z01.811 Encounter for preprocedural respiratory examination | CPT/HCPCS: 99213; G0277 ==

== ENCOUNTER → 2019-09-29 | Outpatient (CLI) | payer OTHER | LOC: WCC 13:59 | PROVIDERS: ATTEND Family Medicine Adult Medicine | DX: E11.29 Type 2 diabetes mellitus with other diabetic kidney complication (principal); E11.621 Type 2 diabetes mellitus with foot ulcer; M86.672 Other chronic osteomyelitis, left ankle and foot; L84 Corns and callosities; S90.415A Abrasion, left lesser toe(s), initial encounter; M77.32 Calcaneal spur, left foot; R21 Rash and other nonspecific skin eruption; N18.9 Chronic kidney disease, unspecified; I10 Essential (primary) hypertension; E29.1 Testicular hypofunction; E55.9 Vitamin D deficiency, unspecified; Z01.810 Encounter for preprocedural cardiovascular examination; Z01.811 Encounter for preprocedural respiratory examination ==

== ENCOUNTER → 2019-09-30 | Outpatient (CLI) | payer OTHER | LOC: WCC 15:45 | PROVIDERS: ATTEND Family Medicine Adult Medicine | DX: E11.29 Type 2 diabetes mellitus with other diabetic kidney complication (principal); E11.621 Type 2 diabetes mellitus with foot ulcer; M86.672 Other chronic osteomyelitis, left ankle and foot; S90.415A Abrasion, left lesser toe(s), initial encounter; M77.32 Calcaneal spur, left foot; L84 Corns and callosities; R21 Rash and other nonspecific skin eruption; N18.9 Chronic kidney disease, unspecified; I10 Essential (primary) hypertension; E29.1 Testicular hypofunction; E55.9 Vitamin D deficiency, unspecified; Z01.810 Encounter for preprocedural cardiovascular examination; Z01.811 Encounter for preprocedural respiratory examination ==

== ENCOUNTER → 2019-10-01 | Outpatient (CLI) | payer OTHER | LOC: WCC 12:03 | PROVIDERS: ATTEND Family Medicine Adult Medicine | DX: E11.29 Type 2 diabetes mellitus with other diabetic kidney complication (principal); E11.621 Type 2 diabetes mellitus with foot ulcer; M86.672 Other chronic osteomyelitis, left ankle and foot; S90.415A Abrasion, left lesser toe(s), initial encounter; L84 Corns and callosities; M77.32 Calcaneal spur, left foot; R21 Rash and other nonspecific skin eruption; N18.9 Chronic kidney disease, unspecified; I10 Essential (primary) hypertension; E29.1 Testicular hypofunction; E55.9 Vitamin D deficiency, unspecified; Z01.810 Encounter for preprocedural cardiovascular examination; Z01.811 Encounter for preprocedural respiratory examination ==

== ENCOUNTER → 2019-10-04 | Outpatient (CLI) | payer OTHER | LOC: EEVIPCON → WCC 13:44 | PROVIDERS: ATTEND Family Medicine Adult Medicine | DX: E11.29 Type 2 diabetes mellitus with other diabetic kidney complication (principal); E11.621 Type 2 diabetes mellitus with foot ulcer; M86.672 Other chronic osteomyelitis, left ankle and foot; L84 Corns and callosities; M77.32 Calcaneal spur, left foot; R21 Rash and other nonspecific skin eruption; S90.415A Abrasion, left lesser toe(s), initial encounter; N18.9 Chronic kidney disease, unspecified; I10 Essential (primary) hypertension; E29.1 Testicular hypofunction; E55.9 Vitamin D deficiency, unspecified; Z01.810 Encounter for preprocedural cardiovascular examination; Z01.811 Encounter for preprocedural respiratory examination | CPT/HCPCS: 36415; 82948; G0277 ×2 ==

== ENCOUNTER → 2019-10-05 | Outpatient (CLI) | payer OTHER | LOC: WCC 10-04 14:43 | PROVIDERS: ATTEND Family Medicine Adult Medicine | DX: E11.29 Type 2 diabetes mellitus with other diabetic kidney complication (principal); E11.621 Type 2 diabetes mellitus with foot ulcer; M86.672 Other chronic osteomyelitis, left ankle and foot; L84 Corns and callosities; S90.415A Abrasion, left lesser toe(s), initial encounter; R21 Rash and other nonspecific skin eruption; M77.32 Calcaneal spur, left foot; N18.9 Chronic kidney disease, unspecified; I10 Essential (primary) hypertension; E29.1 Testicular hypofunction; E55.9 Vitamin D deficiency, unspecified; Z01.810 Encounter for preprocedural cardiovascular examination; Z01.811 Encounter for preprocedural respiratory examination ==

== ENCOUNTER → 2019-10-06 | Outpatient (CLI) | payer OTHER | LOC: WCC 14:36 | PROVIDERS: ATTEND Family Medicine Adult Medicine | DX: E11.29 Type 2 diabetes mellitus with other diabetic kidney complication (principal); E11.621 Type 2 diabetes mellitus with foot ulcer; M86.672 Other chronic osteomyelitis, left ankle and foot; L84 Corns and callosities; M77.32 Calcaneal spur, left foot; S90.415A Abrasion, left lesser toe(s), initial encounter; R21 Rash and other nonspecific skin eruption; N18.9 Chronic kidney disease, unspecified; I10 Essential (primary) hypertension; E29.1 Testicular hypofunction; E55.9 Vitamin D deficiency, unspecified; Z01.810 Encounter for preprocedural cardiovascular examination; Z01.811 Encounter for preprocedural respiratory examination ==

== ENCOUNTER → 2019-10-07 | Outpatient (CLI) | payer OTHER | LOC: WCC 10:38 | PROVIDERS: ATTEND Family Medicine Adult Medicine | DX: E11.29 Type 2 diabetes mellitus with other diabetic kidney complication (principal); E11.621 Type 2 diabetes mellitus with foot ulcer; M86.672 Other chronic osteomyelitis, left ankle and foot; L84 Corns and callosities; M77.32 Calcaneal spur, left foot; S90.415A Abrasion, left lesser toe(s), initial encounter; R21 Rash and other nonspecific skin eruption; N18.9 Chronic kidney disease, unspecified; I10 Essential (primary) hypertension; E29.1 Testicular hypofunction; E55.9 Vitamin D deficiency, unspecified; Z01.810 Encounter for preprocedural cardiovascular examination; Z01.811 Encounter for preprocedural respiratory examination ==

== ENCOUNTER → 2019-10-08 | Outpatient (CLI) | payer OTHER | LOC: WCC 12:34 | PROVIDERS: ATTEND Family Medicine Adult Medicine | DX: E11.29 Type 2 diabetes mellitus with other diabetic kidney complication (principal); E11.621 Type 2 diabetes mellitus with foot ulcer; M86.672 Other chronic osteomyelitis, left ankle and foot; L84 Corns and callosities; M77.32 Calcaneal spur, left foot; S90.415A Abrasion, left lesser toe(s), initial encounter; R21 Rash and other nonspecific skin eruption; N18.9 Chronic kidney disease, unspecified; I10 Essential (primary) hypertension; E29.1 Testicular hypofunction; E55.9 Vitamin D deficiency, unspecified; Z01.810 Encounter for preprocedural cardiovascular examination; Z01.811 Encounter for preprocedural respiratory examination ==

== ENCOUNTER → 2019-10-11 | Outpatient (CLI) | payer OTHER | LOC: WCC 13:42 | PROVIDERS: ATTEND Family Medicine Adult Medicine | DX: E11.29 Type 2 diabetes mellitus with other diabetic kidney complication (principal); E11.621 Type 2 diabetes mellitus with foot ulcer; M86.672 Other chronic osteomyelitis, left ankle and foot; L84 Corns and callosities; M77.32 Calcaneal spur, left foot; S90.415A Abrasion, left lesser toe(s), initial encounter; R21 Rash and other nonspecific skin eruption; N18.9 Chronic kidney disease, unspecified; I10 Essential (primary) hypertension; E29.1 Testicular hypofunction; E55.9 Vitamin D deficiency, unspecified; Z01.810 Encounter for preprocedural cardiovascular examination; Z01.811 Encounter for preprocedural respiratory examination | CPT/HCPCS: 36415; 82948 ==

== ENCOUNTER → 2019-10-12 | Outpatient (CLI) | payer OTHER | LOC: WCC 14:56 | PROVIDERS: ATTEND Family Medicine Adult Medicine | DX: E11.29 Type 2 diabetes mellitus with other diabetic kidney complication (principal); E11.621 Type 2 diabetes mellitus with foot ulcer; M86.672 Other chronic osteomyelitis, left ankle and foot; S90.415A Abrasion, left lesser toe(s), initial encounter; L84 Corns and callosities; M77.32 Calcaneal spur, left foot; R21 Rash and other nonspecific skin eruption; I10 Essential (primary) hypertension; E29.1 Testicular hypofunction; E55.9 Vitamin D deficiency, unspecified; M18.9 Osteoarthritis of first carpometacarpal joint, unspecified; Z01.810 Encounter for preprocedural cardiovascular examination; Z01.811 Encounter for preprocedural respiratory examination ==

== ENCOUNTER → 2019-10-13 | Outpatient (CLI) | payer OTHER | LOC: WCC 11:36 | PROVIDERS: ATTEND Family Medicine Adult Medicine | DX: E11.29 Type 2 diabetes mellitus with other diabetic kidney complication (principal); E11.621 Type 2 diabetes mellitus with foot ulcer; M86.672 Other chronic osteomyelitis, left ankle and foot; L84 Corns and callosities; M77.32 Calcaneal spur, left foot; R21 Rash and other nonspecific skin eruption; S90.415A Abrasion, left lesser toe(s), initial encounter; N18.9 Chronic kidney disease, unspecified; I10 Essential (primary) hypertension; E29.1 Testicular hypofunction; E55.9 Vitamin D deficiency, unspecified; Z01.810 Encounter for preprocedural cardiovascular examination; Z01.811 Encounter for preprocedural respiratory examination ==

== ENCOUNTER → 2019-10-18 | Outpatient (CLI) | payer OTHER | LOC: WCC 09:42 | PROVIDERS: ATTEND Family Medicine Adult Medicine | DX: E11.29 Type 2 diabetes mellitus with other diabetic kidney complication (principal); E11.621 Type 2 diabetes mellitus with foot ulcer; M86.672 Other chronic osteomyelitis, left ankle and foot; S90.415A Abrasion, left lesser toe(s), initial encounter; L84 Corns and callosities; M77.32 Calcaneal spur, left foot; R21 Rash and other nonspecific skin eruption; N18.9 Chronic kidney disease, unspecified; I10 Essential (primary) hypertension; E29.1 Testicular hypofunction; E55.9 Vitamin D deficiency, unspecified; Z01.810 Encounter for preprocedural cardiovascular examination; Z01.811 Encounter for preprocedural respiratory examination ==

== ENCOUNTER → 2019-10-20 | Outpatient (CLI) | payer OTHER | LOC: WCC 09:18 | PROVIDERS: ATTEND Family Medicine Adult Medicine | DX: E11.29 Type 2 diabetes mellitus with other diabetic kidney complication (principal); E11.621 Type 2 diabetes mellitus with foot ulcer; M86.672 Other chronic osteomyelitis, left ankle and foot; L84 Corns and callosities; M77.32 Calcaneal spur, left foot; R21 Rash and other nonspecific skin eruption; S90.415A Abrasion, left lesser toe(s), initial encounter; N18.9 Chronic kidney disease, unspecified; I10 Essential (primary) hypertension; E29.1 Testicular hypofunction; E55.9 Vitamin D deficiency, unspecified; Z01.810 Encounter for preprocedural cardiovascular examination; Z01.811 Encounter for preprocedural respiratory examination ==

== ENCOUNTER → 2019-11-04 | Outpatient (CLI) | payer OTHER | LOC: WCC 09:21 | PROVIDERS: ATTEND Family Medicine Adult Medicine | DX: E11.29 Type 2 diabetes mellitus with other diabetic kidney complication (principal); E11.621 Type 2 diabetes mellitus with foot ulcer; M86.672 Other chronic osteomyelitis, left ankle and foot; L84 Corns and callosities; M77.32 Calcaneal spur, left foot; R21 Rash and other nonspecific skin eruption; N18.9 Chronic kidney disease, unspecified; I10 Essential (primary) hypertension; E55.9 Vitamin D deficiency, unspecified; E29.1 Testicular hypofunction; Z01.810 Encounter for preprocedural cardiovascular examination; Z01.811 Encounter for preprocedural respiratory examination ==